=== PATIENT | male | born 1955 | race Caucasian/White ===

== ENCOUNTER 2022-09-28 06:45 | Day surgery (SDC) | payer OTHER ==
[~2022-09-28] VITALS: Ht 165.1 cm; Wt 96.2 kg
[~2022-09-28 06:45] MED LIST: ASPI81TA26 PO; ATOR80TA59 PO; FLOM0.4C39 PO; GINS1CAP2 PO; LISI10TA22 PO; METF500T13 PO; METO1TAB32 PO; NS 1,000 ML IV ONE; SYNT50TA PO; VITA100093 PO; VITMTA PO
[2022-09-28] MEDS ORDERED: LIDOCAINE 2% 100MG/5ML SDV (FOR ANES.) As Ordered ONE (07:24)
[2022-09-28] MEDS ORDERED: propofoL 500 MG/50 ML VIAL As Ordered ONE (07:24)
[2022-09-28 09:05] VITALS: BP 111/56
== END 2022-09-28 09:20 | disposition home or self-care (01) ==
LOC: M OPP 06:45
PROVIDERS: ATTEND Internal Medicine Gastroenterology
DX: Z12.11 Encounter for screening for malignant neoplasm of colon (principal); Z86.010 Personal history of colon polyps; Z80.0 Family history of malignant neoplasm of digestive organs; K64.4 Residual hemorrhoidal skin tags; K64.8 Other hemorrhoids; K57.30 Diverticulosis of large intestine without perforation or abscess without bleeding; F17.290 Nicotine dependence, other tobacco product, uncomplicated; Z79.02 Long term (current) use of antithrombotics/antiplatelets; Z79.82 Long term (current) use of aspirin; Z79.84 Long term (current) use of oral hypoglycemic drugs; Z79.899 Other long term (current) drug therapy